=== PATIENT | female | born 1995 | race Caucasian/White ===

== ENCOUNTER 2016-08-19 18:29 | Emergency (ER) | payer OTHER ==
[~2016-08-19] VITALS: Ht 157.5 cm; Wt 75.7 kg
[~2016-08-19 18:29] MED LIST: IBUP-974 PO; PREN-385 PO
[2016-08-19 19:38] VITALS: BP 131/68
[2016-08-19 20:23] LABS: BASOPHILS # (AUTO) 0.2 K/uL (0.00-0.22); BASOPHILS % (AUTO) 1.3 % (0.0-2.0); EOSINOPHILS # (AUTO) 0.2 K/uL (0-0.4); EOSINOPHILS % (AUTO) 1.7 % (0.0-4.0); HEMATOCRIT 40.4 % (36-48); HEMOGLOBIN 13.4 g/dL (12.0-16.0); LYMPHOCYTES # (AUTO) 2.9 K/uL (2.5-16.5); LYMPHOCYTES % (AUTO) 23.9 % (20.5-51.1); MEAN CORPUSCULAR HEMOGLOBIN 26 pg (27-31); MEAN CORPUSCULAR HGB CONC 33 g/dL (33-37); MEAN CORPUSCULAR VOLUME 80 fL (80-94); MONOCYTES # (AUTO) 0.6 K/uL (0.8-1.0); MONOCYTES % (AUTO) 4.5 % (1.7-9.3); NEUTROPHILS # (AUTO) 8.4 K/uL (1.8-7.7); NEUTROPHILS % (AUTO) 68.6 % (42.2-75.2); PLATELET COUNT (AUTO) 320 K/uL (140-450); RED BLOOD CELL COUNT(AUTO) 5.05 MIL/uL (4.20-5.40); RED CELL DISTRIBUTION WIDTH 13.8 % (11.6-13.7); WHITE BLOOD COUNT (AUTO) 12.3 K/uL (4.5-11.0)
[2016-08-19 20:37] LABS: APPEARANCE,URINE SL CLOUDY (CLEAR); BILIRUBIN,URINE NEGATIVE (NEGATIVE); BLOOD, URINE TRACE-L (NEGATIVE); COLOR,URINE YELLOW (YELLOW); LEUKOCYTE ESTERASE ,URINE 1+ (NEGATIVE); NITRITE, URINE NEGATIVE (NEGATIVE); PH,URINE 6.5 (5.0-9.0); PROTEIN,URINE NEGATIVE (NEGATIVE); UGLUCOSE TRACE (NEGATIVE); UROBILINOGEN,URINE 0.2 EU/dL (0.2 - 1)
[2016-08-19 20:44] LABS: BACTERIA,URINE 1+ /HPF (None Seen); RBC,URINE 0-3 /HPF (0-5)
[2016-08-19 20:46] LABS: URINE AMORPHOUS PHOSPHATES 2+ /HPF (None Seen)
--- NOTE | 2016-08-19 21:02 | NUR ---
PATIENT LEFT WITHOUT BEING SEEN BY DR. MCKEON. NO FURTHER CARE PROVIDED FOR PATIENT.
== END 2016-08-19 21:02 | disposition left against medical advice (07) ==
LOC: MED 18:29
PROC: BU46ZZZ Ultrasonography of Uterus (ICD-10-PCS; principal; 2016-08-19)
DX: O20.9 Hemorrhage in early pregnancy, unspecified (principal); R10.9 Unspecified abdominal pain; Z3A.01 Less than 8 weeks gestation of pregnancy; Z53.21 Procedure and treatment not carried out due to patient leaving prior to being seen by health care provider
CPT/HCPCS: 36415; 76817; 81001; 81025; 84702; 85025; 86900; 86901; 87086; 99281

== ENCOUNTER 2017-01-05 10:30 | Observation (INO) | payer OTHER ==
[~2017-01-05] VITALS: Ht 157.5 cm; Wt 78.5 kg
[2017-01-05] MEDS ORDERED: PREN-380 PO (11:30)
[2017-01-05 11:41] VITALS: BP 123/67
[2017-01-05 13:14] LABS: BILIRUBIN,URINE NEGATIVE (NEGATIVE); BLOOD, URINE NEGATIVE (NEGATIVE); COLOR,URINE YELLOW (YELLOW); LEUKOCYTE ESTERASE ,URINE TRACE (NEGATIVE); NITRITE, URINE NEGATIVE (NEGATIVE); PH,URINE 6.5 (5.0-9.0); PROTEIN,URINE NEGATIVE (NEGATIVE); UGLUCOSE 2+ (NEGATIVE); UROBILINOGEN,URINE 0.2 EU/dL (0.2 - 1)
[2017-01-05 13:23] LABS: APPEARANCE,URINE CLEAR (CLEAR)
[2017-01-05 13:26] LABS: BACTERIA,URINE 0-2 (RARE) /HPF (None Seen); RBC,URINE 0-5 (RARE) /HPF (0-5); SQUAMOUS EPITHELIAL CELL,UR 0-3 (FEW) /LPF (0-3 (FEW)); WBC,URINE 0-5 (RARE) /HPF (0-5)
== END 2017-01-05 15:39 | disposition home or self-care (01) ==
LOC: MERGE 10:30 → MLD 10:30
PROVIDERS: ADMIT Obstetrics & Gynecology; ATTEND Obstetrics & Gynecology
DX: O26.892 Other specified pregnancy related conditions, second trimester (principal); R10.9 Unspecified abdominal pain; Z3A.25 25 weeks gestation of pregnancy
CPT/HCPCS: 76805; 81001; G0378; Q0092; 59025

== ENCOUNTER 2017-02-10 16:00 | Observation (INO) | payer OTHER ==
[~2017-02-10 16:00] MED LIST changes: -IBUP-974 PO
[2017-02-10] MEDS ORDERED: TERBUTALINE 1 MG/ML VIAL SUBQ SCH (17:50)
[2017-02-10] MEDS ORDERED: TERBUTALINE 1 MG/ML VIAL SUBQ ONE (17:55)
== END 2017-02-10 20:50 | disposition home or self-care (01) ==
LOC: MLD 16:00
PROVIDERS: ADMIT Obstetrics & Gynecology; ATTEND Obstetrics & Gynecology
DX: O26.893 Other specified pregnancy related conditions, third trimester (principal); M54.5 Low back pain; Z3A.40 40 weeks gestation of pregnancy
CPT/HCPCS: 59025; 76805; 96372; G0378; J3105; Q0092

== ENCOUNTER 2017-04-01 22:30 | Inpatient (IN) | payer OTHER ==
[~2017-04-01] VITALS: Ht 154.9 cm; Wt 84.8 kg
[2017-04-01] MEDS ORDERED: FERR-252 PO (23:25)
[2017-04-01 23:28] VITALS: BP 116/69
[2017-04-01] MEDS ORDERED: LACTATED RINGERS 1,000 ML IV SCH (23:53)
[2017-04-01] MEDS ORDERED: NALBUPHINE HYDROCHLORIDE 10 MG/ML VIAL IVP PRN (23:55)
[2017-04-01] MEDS ORDERED: AMPICILLIN 2,000 MG in NACL 0.9% MINI-BAG PLUS 100 ML IV ONE (23:55)
[2017-04-01] MEDS ORDERED: PROMETHAZINE 25 MG/ML VIAL IVP PRN (23:55)
[2017-04-01] MEDS ORDERED: OXYTOCIN 10 UNITS/ML VIAL IM SCH (23:55)
[2017-04-01] MEDS ORDERED: METHYLERGONOVINE 0.2 MG/ML AMP IM PRN (23:55)
[2017-04-01] MEDS ORDERED: CARBOPROST 250 MCG/ML AMP IM PRN (23:55)
[2017-04-02] MEDS ORDERED: AMPICILLIN 2,000 MG VIAL ONE (00:28)
[2017-04-02] MEDS ORDERED: OXYTOCIN 20 UNITS in LACTATED RINGERS 1,000 ML IV SCH (01:00)
[2017-04-02] MEDS ORDERED: OXYTOCIN 20 UNITS/LR PREMIX 1,000 ML IV ONE (01:26)
[2017-04-02 01:37] LABS: APPEARANCE,URINE CLEAR (CLEAR); BILIRUBIN,URINE NEGATIVE (NEGATIVE); BLOOD, URINE NEGATIVE (NEGATIVE); COLOR,URINE YELLOW (YELLOW); LEUKOCYTE ESTERASE ,URINE NEGATIVE (NEGATIVE); NITRITE, URINE NEGATIVE (NEGATIVE); UGLUCOSE NEGATIVE (NEGATIVE)
[2017-04-02 01:47] LABS: BASOPHILS # (AUTO) 0.1 K/uL (0.00-0.22); EOSINOPHILS # (AUTO) 0.1 K/uL (0-0.4); HEMATOCRIT 33.8 % (36-48); HEMOGLOBIN 10.7 g/dL (12.0-16.0); LYMPHOCYTES # (AUTO) 2.3 K/uL (2.5-16.5); MEAN CORPUSCULAR HGB CONC 32 g/dL (33-37); NEUTROPHILS # (AUTO) 5.6 K/uL (1.8-7.7)
[2017-04-02 01:48] LABS: CARBON DIOXIDE 23.7 mmol/L (21-32); CREATININE 0.6 mg/dL (0.6-1.3); POTASSIUM 3.7 mmol/L (3.5-5.1); RBC,URINE 0-5 (RARE) /HPF (0-5); WBC,URINE 0-5 (RARE) /HPF (0-5)
[2017-04-02 01:51] LABS: BASOPHILS % (AUTO) 1.2 % (0.0-2.0); EOSINOPHILS % (AUTO) 1.1 % (0.0-4.0); LYMPHOCYTES % (AUTO) 26.7 % (20.5-51.1); MEAN CORPUSCULAR HEMOGLOBIN 23 pg (27-31); MEAN CORPUSCULAR VOLUME 73 fL (80-94); MONOCYTES # (AUTO) 0.5 K/uL (0.8-1.0); MONOCYTES % (AUTO) 5.6 % (1.7-9.3); NEUTROPHILS % (AUTO) 65.4 % (42.2-75.2); PLATELET COUNT (AUTO) 340 K/uL (140-450); RED BLOOD CELL COUNT(AUTO) 4.64 MIL/uL (4.20-5.40); RED CELL DISTRIBUTION WIDTH 15.5 % (11.6-13.7); WHITE BLOOD COUNT (AUTO) 8.6 K/uL (4.5-11.0)
[2017-04-02 01:54] LABS: ALBUMIN 2.2 g/dL (3.4-5.0); TOTAL BILIRUBIN 0.3 mg/dL (0.0-1.0)
[2017-04-02] MEDS ORDERED: AMPICILLIN 1,000 MG VIAL ONE ×2 (03:19→07:10)
[2017-04-02] MEDS ORDERED: PROMETHAZINE 25 MG/ML VIAL ONE ×2 (10:07→14:13)
[2017-04-02] MEDS ORDERED: MORPHINE SULFATE 10 MG/ML SYR ONE ×2 (10:07→14:13)
[2017-04-02] MEDS ORDERED: MORPHINE SULFATE 10 MG/ML SYR IVP PRN ×2 (14:10→14:20)
[2017-04-02] MEDS ORDERED: OXYTOCIN 10 UNITS/ML VIAL ONE (18:03)
[2017-04-02] MEDS ORDERED: LIDOCAINE 1% 50 ML ONE (18:34)
[2017-04-02] MEDS ORDERED: METHYLERGONOVINE 0.2 MG TAB PO PRN (18:55)
[2017-04-02] MEDS ORDERED: SODIUM PHOSPHATE 118 ML ENEM RC PRN (18:55)
[2017-04-02] MEDS ORDERED: HYDROcodone/APAP 5/325 MG 1 TAB TAB PO PRN (18:55)
[2017-04-02] MEDS ORDERED: OXYTOCIN 10 UNITS/ML VIAL IM PRN (18:55)
[2017-04-02] MEDS ORDERED: MEASLES, MUMPS, AND RUBELLA 1 VIAL SQVAC PRN (18:55)
[2017-04-02] MEDS ORDERED: oxyCODONE/APAP 5/325 MG 1 TAB TAB PO PRN (18:55)
[2017-04-02] MEDS ORDERED: BENZOCAINE/MENTHOL 20%-0.5% 60 GM CAN TP PRN (18:55)
[2017-04-02] MEDS ORDERED: TEMAZEPAM 15 MG CAP PO PRN (18:55)
[2017-04-02] MEDS ORDERED: METHYLERGONOVINE 0.2 MG/ML AMP IM PRN (18:55)
[2017-04-02] MEDS ORDERED: DOCUSATE SOD/SENNA 50/8.6 MG 1 TAB PO SCH (21:00)
[2017-04-03 06:01] LABS: HEMATOCRIT 26.7 % (36-48); HEMOGLOBIN 8.4 g/dL (12.0-16.0)
--- NOTE | 2017-04-03 09:10 | NUR ---
PATIENT HAS BEEN SCREENED AND CATEGORIZED LOW NUTRITION RISK. PATIENT WILL BE SEEN WITHIN 7 DAYS OF ADMISSION. 04/08/[address]
[2017-04-03] MEDS ORDERED: DOCUSATE SOD/SENNA 50/8.6 MG 1 TAB PO SCH (21:00)
[2017-04-04 01:00] VITALS: BP 121/78
[2017-04-04] MEDS ORDERED: IBUP-1842 PO (07:57)
== END 2017-04-04 14:55 | disposition home or self-care (01) | DRG 560 ==
LOC: MLD 22:30 → MFCC 04-02 20:30
PROVIDERS: ADMIT Obstetrics & Gynecology; ATTEND Obstetrics & Gynecology
PROC: 10E0XZZ Delivery of Products of Conception, External Approach (ICD-10-PCS; principal; 2017-04-02)
PROC: 0HQ9XZZ Repair Perineum Skin, External Approach (ICD-10-PCS; 2017-04-02)
DX: O26.893 Other specified pregnancy related conditions, third trimester (principal); Z37.0 Single live birth; O70.0 First degree perineal laceration during delivery; Z3A.39 39 weeks gestation of pregnancy; Z28.21 Immunization not carried out because of patient refusal
CPT/HCPCS: 36415; 59409; 80053; 81001; 85018; 85025; 86592; 86886; 86900; 86901; 87653-90; J0290; J2001; J2270; J2550; J2590; J7120

== ENCOUNTER 2023-04-05 13:41 | Emergency (ER) | payer OTHER ==
[~2023-04-05] VITALS: Ht 157.5 cm; Wt 84.0 kg
[~2023-04-05 13:41] MED LIST changes: +FERR-252 PO; +IBUP-1842 PO
[2023-04-05 13:55] VITALS: BP 108/73; PULSE 75; RESP 19; TEMP 98; O2SAT 98
[2023-04-05 16:49] LABS: APPEARANCE,URINE CLEAR (CLEAR); BILIRUBIN,URINE NEGATIVE (NEGATIVE); BLOOD, URINE TRACE-I (NEGATIVE); COLOR,URINE YELLOW (YELLOW); LEUKOCYTE ESTERASE ,URINE 1+ (NEGATIVE); NITRITE, URINE NEGATIVE (NEGATIVE); PROTEIN,URINE NEGATIVE (NEGATIVE); UGLUCOSE NEGATIVE (NEGATIVE); UROBILINOGEN,URINE 0.2 EU/dL (0.2 - 1)
[2023-04-05 16:57] LABS: BACTERIA,URINE 1+ /HPF (None Seen); MUCUS,URINE 1+ /LPF (None Seen); RBC,URINE 0-5 /HPF (0-5); TRICHOMONAS,URINE None Seen /HPF (None Seen); YEAST,URINE None Seen /HPF (None Seen)
[2023-04-05] MEDS ORDERED: CEPH250C16 PO (17:08)
== END 2023-04-05 17:11 | disposition home or self-care (01) ==
LOC: MED 13:41
DX: N30.00 Acute cystitis without hematuria (principal); Z79.899 Other long term (current) drug therapy; Z79.2 Long term (current) use of antibiotics; Z79.1 Long term (current) use of non-steroidal anti-inflammatories (NSAID)
CPT/HCPCS: 81001; 81025; 87086; 99283

== ENCOUNTER 2023-12-10 23:08 | Emergency (ER) | payer OTHER ==
[~2023-12-10] VITALS: Ht 157.5 cm; Wt 88.5 kg
[~2023-12-10 23:08] MED LIST changes: +CEPH250C16 PO
[2023-12-10 23:14] VITALS: BP 123/80; RESP 18; TEMP 98; O2SAT 98
[2023-12-10 23:21] VITALS: BP 123/80; RESP 18; TEMP 98; O2SAT 98
[2023-12-10] MEDS ORDERED: ACET-10509 PO (23:59)
[2023-12-10] MEDS ORDERED: PYR100 PO (23:59)
[2023-12-10] MEDS ORDERED: NITR100C7 PO (23:59)
== END 2023-12-11 00:47 | disposition home or self-care (01) ==
LOC: MED 23:08
DX: N39.0 Urinary tract infection, site not specified (principal); Z79.899 Other long term (current) drug therapy
CPT/HCPCS: 81002; 81025; 99283

== ENCOUNTER 2024-01-10 23:12 | Emergency (ER) | payer OTHER ==
[~2024-01-10] VITALS: Ht 157.5 cm; Wt 84.4 kg
[~2024-01-10 23:12] MED LIST changes: +ACET-10509 PO; +NITR100C7 PO; +PYR100 PO
[2024-01-10 23:31] VITALS: BP 123/82; PULSE 72; RESP 16; TEMP 98.3; O2SAT 98
== END 2024-01-11 03:05 | disposition left against medical advice (07) ==
LOC: MED 23:12
DX: O26.891 Other specified pregnancy related conditions, first trimester (principal); R10.9 Unspecified abdominal pain; O21.8 Other vomiting complicating pregnancy; Z53.21 Procedure and treatment not carried out due to patient leaving prior to being seen by health care provider; Z3A.08 8 weeks gestation of pregnancy